=== PATIENT | female | born 1940 | race Caucasian/White ===

== ENCOUNTER 2016-10-08 13:12 | Outpatient (RCR) | payer OTHER, MEDICARE | END 2017-01-06 | disposition home or self-care (01) | LOC: ONC 13:12 | PROVIDERS: ATTEND Radiology Radiation Oncology | DX: C50.412 Malignant neoplasm of upper-outer quadrant of left female breast (principal) | CPT/HCPCS: 99214 ==

== ENCOUNTER 2020-10-28 21:45 | Emergency (ER) | payer MEDICARE, OTHER ==
[~2020-10-28] VITALS: Ht 162.6 cm; Wt 62.2 kg
[2020-10-28 21:56] VITALS: BP 129/69
--- NOTE | 2020-10-28 22:31 | ED Upper Extremity ---
General Chief Complaint: Laceration Stated Complaint: FINGER LACERATION Nursing Triage Note: PT AMBULATE TO ROOM FS02 WITH C/O LAC TO LEFT INDEX FINGER. PT STATES SHE WAS TRYING TO OPEN A PACKAGE OF SALAD DRESSING. Nursing Sepsis Screen: No Definite Risk Source: patient Exam Limitations: no limitations History of Present Illness Date Seen by Provider: Oct 28, 2020 Time Seen by Provider: 22:00 Initial Comments Patient is a 80-year-old female who presents with a laceration to the left index finger. Patient was using a paring knife at the time of injury. Patient has a full-thickness 2 cm flap laceration Wound is clean. Bleeding is controlled. Tetanus is out of date. No other acute symptoms or complaints. Onset: just prior to arrival Pain/Injury Location: left 2nd finger Method of Injury: incised Allergies and Home Medications Patient Home Medication List Home Medication List Reviewed: Yes Review of Systems Constitutional: see HPI Respiratory: see HPI Cardiovascular: see HPI Gastrointestinal: see HPI Genitourinary: see HPI Musculoskeletal: other (2 cm full-thickness flap laceration through the left second finger pad. No joint involvement. Wound is clean, bleeding is controlled.) Skin: see HPI Past Uchmqdc-Efqaxr-Eclhnm Hx Patient Social History Alcohol Use: Denies Use Smoking Status: Current Everyday Smoker Type Used: Cigarettes 2nd Hand Smoke Exposure: Yes Recent Infectious Disease Expo: No Recent Hopitalizations: No Seasonal Allergies Seasonal Allergies: No Past Medical History Surgeries: Yes (LUMPECTOMY LEFT BREAST, MELANOMO FROM RIGHT LEG, ) Respiratory: No Cardiac: Yes Hypertension Neurological: No Genitourinary: Yes Kidney Stones Gastrointestinal: No Musculoskeletal: Yes (LEFT ANKLE FX, ) Fractures Endocrine: Yes Hypothyroidsim HEENT: Yes (CATARACT SURGERY BILAT, ) Cataract Hearing Impairment: Denies Cancer: No Psychosocial: No (XANAX TO HELP SLEEP) Integumentary: No Blood Disorders: No Physical Exam Vital Signs Vital Signs - First Documented 10/28/20 21:56 Temp 36.4 Pulse 69 Resp 17 B/P (MAP) 129/69 (89) O2 Delivery Room Air Capillary Refill : Less Than 3 Seconds Height, Weight, BMI Height: '" Weight: lbs. oz. kg; 23.00 BMI Method: General Appearance: no apparent distress Procedures/Interventions Wound Location: Upper Extremities Other Wound Location Left index finger Wound Length (cm): 2 Wound Explored: clean Betadine Prep?: No Other Closure Supply: Wound Adhesive Progress Wound irrigated, cleansed and closed with wound adhesive. A finger tourniquet was used to stop bleeding. Progress/Results/Core Measures Results/Orders Vital Signs/I&O 10/28/20 21:56 Temp 36.4 Pulse 69 Resp 17 B/P (MAP) 129/69 (89) O2 Delivery Room Air Blood Pressure Mean: 89 Departure Communication (Admissions) Wound cleansed and closed with wound adhesive. Impression Primary Impression: Laceration of left index finger Disposition: HOME, SELF-CARE Condition: Stable Departure-Patient Inst. Decision time for Depature: 22:34 Referrals: TONO MACK APRN (PCP/Family) Primary Care Physician Patient Instructions: Laceration Repair With Glue (DC) Add. Discharge Instructions: Please keep wound clean and dry. Return to the ED if signs of infection. All discharge instructions reviewed with patient and/or family. Voiced understanding. MICHELLE RAYO DO Oct 28, 2020 22:31
[2020-10-28] MEDS ORDERED: TETANUS & DIPHTHERIA TOX,ADULT 0.5 ML (TENIVAC) IM ONE (22:45)
== END 2020-10-28 22:50 | disposition home or self-care (01) ==
LOC: EDUNIT# 21:45 → ER FS 21:50
DX: S61.211A Laceration without foreign body of left index finger without damage to nail, initial encounter (principal); F17.210 Nicotine dependence, cigarettes, uncomplicated; Z23 Encounter for immunization; W26.0XXA Contact with knife, initial encounter
CPT/HCPCS: 90714

== ENCOUNTER → 2021-01-01 | Outpatient (CLI) | payer MEDICARE ==
--- NOTE | 2021-01-01 15:02 | Diagnostic Imaging Report ---
INDICATION: Postmenopausal. COMPARISON: None FINDINGS: The bone mineral density of the hips and spine and femoral necks was measured. There are no prior studies available for comparison. The total T score for the spine is 1.4. The total T score for the left hip is -0.3 and for the right hip -0.5. The T score for the left femoral neck is -0.3 and for the right femoral neck -0.8. All of these values are within normal limits. AP Spine L1-L4: [BMD (g/cm2): 1.366] [T-Score: 1.4] [Z-Score: 3.2] [BMD Previous: na] [BMD % Change: na] LT Hip Neck: [BMD (g/cm2): 1.0] [T-Score: -0.3] [Z-Score: 1.9] LT Hip Total: [BMD (g/cm2):0.968] [T-Score:-0.3] [Z-Score: 1.7] [BMD Previous: na] [BMD % Change: na] RT Hip Neck: [BMD (g/cm2):0.934] [T-Score:-0.8] [Z-Score:1.4] RT Hip Total: [BMD (g/cm2):0.940] [T-score:-0.5] [Z-Score:1.4] [BMD Previous:na] [BMD % Change:na] *Indicates significant change from prior examination based on 95% confidence level. World Health Organization criteria for BMD interpretation classify patients as Normal (T-score at or above -1.0), Osteopenic (T-score between -1.0 and -2.5) or Osteoporotic (T-score at or below -2.5). LIMITATIONS AND MODIFICATION: None. FRACTURE RISK (FRAX SCORE): The ten year probability of (%): Major Osteoporotic Fracture: [na] Hip Fracture: [na] IMPRESSION: 1. The bone mineral density of the spine and hips and the femoral necks is within normal limits. 2. See below National Osteoporosis Foundation guidelines on when to potentially initiate pharmacologic therapy. Based on the National Osteoporosis Foundation Guidelines, pharmacologic treatment should be initiated in any of the following, unless clinical conditions suggest otherwise: * Any patient with prior fragility fracture of the hip or vertebrae. A spine fracture indicates 5X risk for subsequent spine fracture and 2X risk for subsequent hip fracture. * Osteoporosis (T-score <-2.5). * Postmenopausal women and men age 50 and older with low bone mass/osteopenia (T-score between -1.0 and -2.5) by DXA and 10-year major osteoporotic fracture greater than 20% or a 10-year probability of hip fracture greater than 3%. These fracture risks are supplied above in the FRAX score, if applicable. * Clinician judgement and/or patient preferences may indicate treatment for people with 10-year fracture probabilities above or below these levels. Dictated by: Dictated on workstation # [id number]
== END ==
LOC: EDBD 11-13 11:00 → RAD 12:30
PROVIDERS: ATTEND Nurse Practitioner
DX: Z78.0 Asymptomatic menopausal state (principal)
CPT/HCPCS: 77080

== ENCOUNTER 2021-02-21 17:39 | Emergency (ER) | payer MEDICARE ==
[~2021-02-21] VITALS: Ht 160 cm; Wt 65.0 kg
--- NOTE | 2021-02-21 18:11 | ED Abdominal Pain ---
General Chief Complaint: - Urinary Stated Complaint: RIGHT LOWER SIDE PAIN Nursing Triage Note: BACK PAIN THAT RADIATES INTO HER GROIN SINCE THIS AM. NAUSEA WELL. Sepsis Screen: No Definite Risk History of Present Illness Date Seen by Provider: February 21, 2021 Time Seen by Provider: 18:00 Initial Comments 81-year-old female presents with right back and flank pain, beginning after having an ultrasound done for routine RE-evaluation for a known abdominal an eurysm. She states that it was "unchanged". Patient says she has been constipated and did take a suppository afterwards and only had a small bowel movement. Otherwise she is taking nothing for pain. She denies any pain with urination, frequent urination or blood in her urine. Although she does have a history of kidney stones, She states this does not feel like a kidney stone. Denies any upper abdominal pain or vomiting, loss of appetite, fever or chills. Denies chest pain, palpitations, cough or shortness of air. Pain is not pulsating, but waxes and wanes. Allergies and Home Medications Allergies Coded Allergies: No Known Drug Allergies (Unverified , 10/28/20) Home Medications Ondansetron 4 Mg Tab.rapdis, 4 MG PO TID Prescribed by: DAMARI QUINONEZ on 02/21/211911 Patient Home Medication List Home Medication List Reviewed: Yes Review of Systems Review of Systems Constitutional: No chills, No fever, No malaise, No weakness EENTM: No Symptoms Reported Respiratory: Denies Cough, Denies Shortness of Air, Denies Wheezing Cardiovascular: Denies Chest Pain, Denies Edema, Denies Palpitations Gastrointestinal: See HPI, Abdominal Pain, Constipated; Denies Diarrhea; Nausea; Denies Vomiting Genitourinary: See HPI; Denies Frequency; Flank Pain; Denies Hematuria Musculoskeletal: back pain Skin: No change in color, No rash Past Pjhzead-Rueuhw-Fnurte Hx Past Med/Social Hx: Reviewed Nursing Past Med/Soc Hx Patient Social History Alcohol Use: Denies Use Smoking Status: Former Smoker Type Used: Cigarettes 2nd Hand Smoke Exposure: Yes Recent Infectious Disease Expo: No Recent Hopitalizations: No Seasonal Allergies Seasonal Allergies: No Past Medical History Surgeries: Yes (LUMPECTOMY LEFT BREAST, MELANOMO FROM RIGHT LEG, ) Respiratory: No Cardiac: Yes Hypertension Neurological: No Genitourinary: Yes Kidney Stones Gastrointestinal: No Musculoskeletal: Yes (LEFT ANKLE FX, ) Fractures Endocrine: Yes Hypothyroidsim HEENT: Yes (CATARACT SURGERY BILAT, ) Cataract Hearing Impairment: Denies Cancer: No Psychosocial: No (XANAX TO HELP SLEEP) Integumentary: No Blood Disorders: No Physical Exam Vital Signs Vital Signs - First Documented 02/21/21 17:45 Temp 35.7 Pulse 66 Resp 18 B/P (MAP) 203/100 (134) Pulse Ox 97 O2 Delivery Room Air Capillary Refill : Less Than 3 Seconds Height/Weight/BMI Height: '" Weight: lbs. oz. kg; 25.00 BMI Method: General Appearance: WD/WN, no apparent distress Respiratory: chest non-tender, lungs clear, normal breath sounds, no respiratory distress, no accessory muscle use Cardiovascular: regular rate, rhythm, no edema, no JVD Gastrointestinal: soft, no organomegaly; No guarding, No rebound; tenderness (generalized, R flank without peritoneal sx); No mass, No hepatomegaly Back: CVA tenderness (R), muscle spasm (R mid lumbar paraspinal ms) Neurologic/Psychiatric: alert, normal mood/affect, oriented x 3 Skin: normal color, warm/dry Progress/Results/Core Measures Results/Orders Lab Results Laboratory Tests Test 02/21/21 17:50 Range/Units Urine Color PALE YELLOW Urine Clarity CLEAR Urine pH 7.5 5-9 Urine Specific [place] 1.020 1.016-1.022 Urine Protein NEGATIVE NEGATIVE Urine Glucose (UA) NEGATIVE NEGATIVE Urine Ketones NEGATIVE NEGATIVE Urine Nitrite NEGATIVE NEGATIVE Urine Bilirubin NEGATIVE NEGATIVE Urine Urobilinogen 0.2 < = 1.0 MG/DL Urine Leukocyte Esterase TRACE H NEGATIVE Urine RBC (Auto) 1+ H NEGATIVE Urine RBC 0-2 /HPF Urine WBC 5-10 H /HPF Urine Squamous Epithelial Cells RARE /HPF Urine Crystals NONE /LPF Urine Bacteria NEGATIVE /HPF Urine Casts NONE /LPF Urine Mucus NEGATIVE /LPF Urine Culture Indicated YES My Orders Orders - DAMARI QUINONEZ DO Urinalysis (02/21/21 18:00) Ed Iv/Invasive Line Start (02/21/21 18:06) Fentanyl Inj (Sublimaze Injection) (02/21/21 18:15) Ns Iv 500 Ml (Sodium Chloride 0.9%) (02/21/21 18:15) Ondansetron Injection (Zofran Injectio (02/21/21 18:15) Urine Culture (02/21/21 17:50) Acute Abd Series (02/21/21 18:19) Ibuprofen Tablet (Motrin Tablet) (02/21/21 19:00) Magnesium Citrate Oral Soln (Citrate Of (02/21/21 19:00) Medications Given in ED Current Medications Medications Dose Ordered Sig/Jakub Route Start Time Stop Time Status Last Admin Dose Admin Fentanyl Citrate 50 mcg ONCE ONCE IVP 02/21/21 18:15 02/21/21 18:16 DC 02/21/21 18:14 50 MCG Ibuprofen 800 mg ONCE ONCE PO 02/21/21 19:00 02/21/21 19:01 DC 02/21/21 19:05 800 MG Magnesium Citrate 150 ml ONCE ONCE PO 02/21/21 19:00 02/21/21 19:01 DC 02/21/21 19:05 150 ML Ondansetron HCl 4 mg ONCE ONCE IVP 02/21/21 18:15 02/21/21 18:16 DC 02/21/21 18:13 4 MG Vital Signs/I&O 02/21/21 17:45 Temp 35.7 Pulse 66 Resp 18 B/P (MAP) 203/100 (134) Pulse Ox 97 O2 Delivery Room Air Blood Pressure Mean: 134 Progress Progress Note : Progress Note suspect pain is from gas and stool on R side. Patient admits to constipation and having small BM after taking suppository this afternoon. Hx of occasional constipation and has Rx suppositories at home. Today took an older Rx that was , but states she has "newer ones" in her fridge. See instructions, given 1/2 bottle mag citrate prior to departure, advised clear liquids until improvement and prompt follow up if sx progress, unrelieved in 24 hours. Patient and her agree and express understanding. BP was elevated, advised to take PM BP meds when she gets home. Departure Impression Primary Impression: Abdominal pain Qualified Codes: R10.11 - Right upper quadrant pain Disposition: 01 HOME, SELF-CARE Condition: Stable Departure-Patient Inst. Decision time for Depature: 18:53 Referrals: NO,LOCAL PHYSICIAN (PCP) Primary Care Physician TONO MACK APRN (Family) Primary Care Physician Patient Instructions: Abdominal Pain, Adult ED Add. Discharge Instructions: 1. Maintain a clear liquid diet until your pain is resolved. 2. Take 2 teaspoons of Milk of Magnesia every 2 hours for up to 2 days until loose stool 3. Take motrin 800mg for pain and Zofran 4mg for nausea See your Primary Care doctor in 1 day if not improving, ER sooner if worse All discharge instructions reviewed with patient and/or family. Voiced understanding. Scripts Ondansetron (Ondansetron Odt) 4 Mg Tab.rapdis 4 MG PO TID for Nausea, #10 TAB Prov: DAMARI QUINONEZ DO 02/21/21 DAMARI QUINONEZ DO February 21, 2021 18:11
[2021-02-21] MEDS: ONDANSETRON 4 MG/2 ML (SDV) Z0FRAN IVP ONE (18:13)
[2021-02-21] MEDS: fentaNYL INJ 100 MCG/2 ML AMP IVP ONE (18:14)
[2021-02-21] MEDS: NS IV 500 ML 500 ML IV SCH (18:14)
[2021-02-21 18:15] LABS: BACTERIA,URINE NEGATIVE /HPF; BILIRUBIN,URINE NEGATIVE (NEGATIVE); CLARITY,URINE CLEAR; COLOR,URINE PALE YELLOW; GLUCOSE, URINE (UA) NEGATIVE (NEGATIVE); KETONES,URINE NEGATIVE (NEGATIVE); LEUKOCYTE ESTERASE ,URINE TRACE (NEGATIVE); NITRITE,URINE NEGATIVE (NEGATIVE); PH,URINE 7.5 (5-9); PROTEIN,URINE NEGATIVE (NEGATIVE); RBC,URINE 0-2 /HPF; SQUAMOUS EPITHELIAL CELL,UR RARE /HPF
--- NOTE | 2021-02-21 18:39 | Diagnostic Imaging Report ---
EXAMINATION: Abdominal series and chest radiograph HISTORY: Abdominal pain, shortness of breath. COMPARISON: None available. FINDINGS: The lungs are clear. No edema. No pneumonia. No pleural effusion. No pneumothorax. Heart is normal in size. Bowel gas pattern is normal. No free air is seen. IMPRESSION: 1. Clear lungs. 2. Normal bowel gas pattern. Dictated by: Dictated on workstation # [id number]
[2021-02-21] MEDS: IBUPROFEN 800 MG (MOTRIN) TAB PO ONE (19:05)
[2021-02-21] MEDS: MAGNESIUM CITRATE 300 ML BTL PO ONE (19:05)
[2021-02-21] MEDS ORDERED: ONDA4TAB11 PO (19:12)
[2021-02-21 19:17] VITALS: BP 205/97
== END 2021-02-21 19:20 | disposition home or self-care (01) ==
LOC: EDUNIT# 17:39 → ER FS 17:44
DX: R10.84 Generalized abdominal pain (principal); I10 Essential (primary) hypertension; K59.00 Constipation, unspecified; Z87.442 Personal history of urinary calculi; Z87.891 Personal history of nicotine dependence; Z77.22 Contact with and (suspected) exposure to environmental tobacco smoke (acute) (chronic)
CPT/HCPCS: 74022; 81000; 87088

== ENCOUNTER 2021-02-23 15:41 | Emergency (ER) | payer MEDICARE ==
[~2021-02-23 15:41] MED LIST: ONDA4TAB11 PO
[2021-02-23 16:12] LABS: BACTERIA,URINE MODERATE /HPF; BILIRUBIN,URINE NEGATIVE (NEGATIVE); CLARITY,URINE CLOUDY; COLOR,URINE YELLOW; GLUCOSE, URINE (UA) NEGATIVE (NEGATIVE); KETONES,URINE 2+ (NEGATIVE); LEUKOCYTE ESTERASE ,URINE 3+ (NEGATIVE); NITRITE,URINE NEGATIVE (NEGATIVE); PROTEIN,URINE NEGATIVE (NEGATIVE)
[2021-02-23 16:14] LABS: BASOPHILS % (AUTO) 0 % (0-10); EOSINOPHILS % (AUTO) 0 % (0-10); HEMATOCRIT 40 % (35-52); HEMOGLOBIN 13.6 G/DL (11.5-16.0); LYMPHOCYTES # (AUTO) 1.3 X 10^3 (1.0-4.0); LYMPHOCYTES % (AUTO) 7 % (12-44); MEAN CORPUSCULAR HEMOGLOBIN 31 PG (25-34); MEAN CORPUSCULAR HGB CONC 34 G/DL (32-36); MEAN CORPUSCULAR VOLUME 91 FL (80-99); MEAN PLATELET VOLUME 11.3 FL (7.4-10.4); MONOCYTES # (AUTO) 1.2 X 10^3 (0.0-1.0); MONOCYTES % (AUTO) 7 % (0-12); NEUTROPHILS # (AUTO) 14.4 X 10^3 (1.8-7.8); NEUTROPHILS % (AUTO) 85 % (42-75); PLATELET COUNT 286 10^3/uL (130-400)
[2021-02-23 16:30] LABS: ALBUMIN 3.9 GM/DL (3.2-4.5); BILIRUBIN,TOTAL 0.6 MG/DL (0.1-1.0); CALCIUM 8.5 MG/DL (8.5-10.1); CREATININE SERUM 1.26 MG/DL (0.60-1.30); LYMPHOCYTES % (MANUAL) 5 %; MONOCYTES % (MANUAL) 1 %; NEUTROPHILS % (MANUAL) 94 %; POTASSIUM 3.8 MMOL/L (3.6-5.0); TOXIC GRANULATION/VACUOLAZATIO 1+
[2021-02-23] MEDS ORDERED: IOHEXOL 350 MG/ML 100 ML (OMNIPAQUE 350) VIAL IV ONE (16:45)
[2021-02-23] MEDS ORDERED: HOLD METFORMIN - RECEIVED CONTRAST 20 ML VIAL IV SCH (16:45)
[2021-02-23] MEDS ORDERED: NS 100 ML (IVPB) BAG IV ONE (16:45)
[2021-02-23] MEDS ORDERED: CATHETER FLUSH 10 ML SYR IV PRN (16:45)
--- NOTE | 2021-02-23 16:57 | ED GI ---
General Chief Complaint: Abdominal/GI Problems Stated Complaint: RIGHT SIDE ABDOMINAL PAIN | CONSTIPATION Nursing Triage Note: Patient presents to the ED with c/o of right sided abdominal pain. She reports she was seen on in the ED and given zofran and told to use milk of magnesia. She states the pain improved yesterday when she was having bowel movements but today the pain has increased in severity, is tender to touch, and increased with movement. Sepsis Screen: No Definite Risk History of Present Illness Date Seen by Provider: February 23, 2021 Initial Comments 81-year-old female returns to the ER after being seen by myself 2 days earlier. Patient presumed to have some mild constipation and was given instructions to have a bowel movement as this seems to be a logical explanation of her pain. See note for further details and history of present illness. Patient denies any nausea, vomiting or diarrhea. She did have a bowel movement after taking milk of magnesia and did feel better for a short period, however now pain has returned. Pain is localized to the right lower abdomen, no longer in her back. She denies any pain with urination, increased frequency or blood in her urine. Allergies and Home Medications Allergies Coded Allergies: No Known Drug Allergies (Unverified , 10/28/20) Home Medications Ondansetron 4 Mg Tab.rapdis, 4 MG PO TID Prescribed by: DAMARI QUINONEZ on 02/21/211911 Patient Home Medication List Home Medication List Reviewed: Yes Review of Systems Review of Systems Constitutional: No chills, No fever, No malaise, No weakness EENTM: No Symptoms Reported Respiratory: No Symptoms Reported; Denies Cough, Denies Shortness of Air Cardiovascular: Denies Chest Pain, Denies Edema, Denies Palpitations, Denies Syncope Gastrointestinal: See HPI, Abdominal Pain; Denies Constipated (but slow and infreq BM's), Denies Diarrhea, Denies Nausea, Denies Poor Appetite, Denies Vomiting Genitourinary: No Symptoms Reported; Denies Burning, Denies Frequency, Denies Flank Pain, Denies Hematuria Musculoskeletal: No back pain, No joint pain, No muscle pain Skin: No change in color, No lesions, No rash Past Aulinbx-Gixzzo-Ohjujm Hx Past Med/Social Hx: Reviewed Nursing Past Med/Soc Hx Patient Social History Alcohol Use: Denies Use Smoking Status: Current Everyday Smoker Type Used: Cigarettes 2nd Hand Smoke Exposure: Yes Recent Infectious Disease Expo: No Recent Hopitalizations: No Seasonal Allergies Seasonal Allergies: No Past Medical History Surgeries: Yes (LUMPECTOMY LEFT BREAST, MELANOMO FROM RIGHT LEG, ) Respiratory: No Cardiac: Yes Hypertension Neurological: No Genitourinary: Yes Kidney Stones Gastrointestinal: No Musculoskeletal: Yes (LEFT ANKLE FX, ) Fractures Endocrine: Yes Hypothyroidsim HEENT: Yes (CATARACT SURGERY BILAT, ) Cataract Hearing Impairment: Denies Cancer: No Psychosocial: No (XANAX TO HELP SLEEP) Integumentary: No Blood Disorders: No Physical Exam Vital Signs Vital Signs - First Documented 02/23/21 15:53 Temp 36.6 Pulse 82 Resp 17 B/P (MAP) 135/58 (83) Pulse Ox 82 O2 Delivery Room Air Capillary Refill : Less Than 3 Seconds Height/Weight/BMI Height: '" Weight: lbs. oz. kg; 25.00 BMI Method: General Appearance: WD/WN, no apparent distress Respiratory: chest non-tender, lungs clear, normal breath sounds, no respiratory distress, no accessory muscle use Cardiovascular: regular rate, rhythm, no edema, no JVD Gastrointestinal: normal bowel sounds, soft; No guarding, No rebound; tenderness (RLQ); No mass, No hepatomegaly, No spleenomegaly Back: normal inspection, no CVA tenderness; No muscle spasm Neurologic/Psychiatric: alert, normal mood/affect, oriented x 3 Skin: normal color, warm/dry Progress/Results/Core Measures Results/Orders Lab Results Laboratory Tests Test 02/23/21 15:58 02/23/21 16:05 Range/Units Urine Color YELLOW Urine Clarity CLOUDY Urine pH 8.0 5-9 Urine Specific [place] 1.015 L 1.016-1.022 Urine Protein NEGATIVE NEGATIVE Urine Glucose (UA) NEGATIVE NEGATIVE Urine Ketones 2+ H NEGATIVE Urine Nitrite NEGATIVE NEGATIVE Urine Bilirubin NEGATIVE NEGATIVE Urine Urobilinogen 0.2 < = 1.0 MG/DL Urine Leukocyte Esterase 3+ H NEGATIVE Urine RBC (Auto) 1+ H NEGATIVE Urine RBC 5-10 H /HPF Urine WBC 10-25 H /HPF Urine Squamous Epithelial Cells 5-10 /HPF Urine Crystals NONE /LPF Urine Bacteria MODERATE H /HPF Urine Casts NONE /LPF Urine Mucus NEGATIVE /LPF Urine Culture Indicated YES White Blood Count 17.0 H 4.3-11.0 10^3/uL Red Blood Count 4.40 4.35-5.85 10^6/uL Hemoglobin 13.6 11.5-16.0 G/DL Hematocrit 40 35-52 % Mean Corpuscular Volume 91 80-99 FL Mean Corpuscular Hemoglobin 31 25-34 PG Mean Corpuscular Hemoglobin Concent 34 32-36 G/DL Red Cell Distribution Width 13.9 10.0-14.5 % Platelet Count 286 130-400 10^3/uL Mean Platelet Volume 11.3 H 7.4-10.4 FL Immature Granulocyte % (Auto) 0 % Neutrophils (%) (Auto) 85 H 42-75 % Lymphocytes (%) (Auto) 7 L 12-44 % Monocytes (%) (Auto) 7 0-12 % Eosinophils (%) (Auto) 0 0-10 % Basophils (%) (Auto) 0 0-10 % Neutrophils # (Auto) 14.4 H 1.8-7.8 X 10^3 Lymphocytes # (Auto) 1.3 1.0-4.0 X 10^3 Monocytes # (Auto) 1.2 H 0.0-1.0 X 10^3 Eosinophils # (Auto) 0.0 0.0-0.3 10^3/uL Basophils # (Auto) 0.0 0.0-0.1 10^3/uL Immature Granulocyte # (Auto) 0.1 0.0-0.1 10^3/uL Neutrophils % (Manual) 94 % Lymphocytes % (Manual) 5 % Monocytes % (Manual) 1 % Toxic Granulation 1+ Sodium Level 130 L 135-145 MMOL/L Potassium Level 3.8 3.6-5.0 MMOL/L Chloride Level 90 L 98-107 MMOL/L Carbon Dioxide Level 30 21-32 MMOL/L Anion Gap 10 5-14 MMOL/L Blood Urea Nitrogen 14 7-18 MG/DL Creatinine 1.26 0.60-1.30 MG/DL Estimat Glomerular Filtration Rate 41 BUN/Creatinine Ratio 11 Glucose Level 161 H 70-105 MG/DL Calcium Level 8.5 8.5-10.1 MG/DL Corrected Calcium 8.6 8.5-10.1 MG/DL Total Bilirubin 0.6 0.1-1.0 MG/DL Aspartate Amino Transf (AST/SGOT) 21 5-34 U/L Alanine Aminotransferase (ALT/SGPT) 18 0-55 U/L Alkaline Phosphatase 134 40-136 U/L Total Protein 7.0 6.4-8.2 GM/DL Albumin 3.9 3.2-4.5 GM/DL My Orders Orders - DAMARI QUINONEZ DO Cbc With Automated Diff (02/23/21 16:08) Comprehensive Metabolic Panel (02/23/21 16:08) Urinalysis (02/23/21 16:08) Ct Abd/Pelv W (Appendicitis) (02/23/21 16:08) Urine Culture (02/23/21 15:58) Manual Differential (02/23/21 16:05) Iohexol Injection (Omnipaque 350 Mg/Ml 1 (02/23/21 16:45) Received Contrast (Hold Metformin- Contr (02/23/21 16:45) Sodium Chloride Flush (Catheter Flush Sy (02/23/21 16:45) Ns (Ivpb) (Sodium Chloride 0.9% Ivpb Bag (02/23/21 16:45) Ns Iv 1000 Ml (Sodium Chloride 0.9%) (02/23/21 17:00) Ondansetron Injection (Zofran Injectio (02/23/21 17:00) Medications Given in ED Current Medications Medications Dose Ordered Sig/Jakub Route Start Time Stop Time Status Last Admin Dose Admin Iohexol 80 ml ONCE ONCE IV 02/23/21 16:45 02/23/21 16:46 DC 02/23/21 16:42 80 ML Sodium Chloride 10 ml NEEDED PRN IV 02/23/21 16:45 02/23/21 16:43 10 ML Sodium Chloride 100 ml ONCE ONCE IV 02/23/21 16:45 02/23/21 16:46 DC 02/23/21 16:42 80 ML Vital Signs/I&O 02/23/21 15:53 Temp 36.6 Pulse 82 Resp 17 B/P (MAP) 135/58 (83) Pulse Ox 82 O2 Delivery Room Air Blood Pressure Mean: 83 Diagnostic Imaging Diagonstic Imaging: CT Comments IMPRESSION: 1. Severe right hydronephrosis and hydroureter due to an obstructing 7 mm stone at the right UVJ. There is associated delayed nephrogram on the right indicative of impaired renal function due to the severe obstruction. 2. Fluid-filled colon may be due to diarrheal state. No colitis. 3. Infrarenal abdominal aortic aneurysm measures up to 3.7 cm but has no feature of rupture. Dictated on workstation # [id number] Dict: 02/23/21 1655 Trans: 02/23/21 170 PJ [id number] Interpreted by: OSIEL TEJADA MD Electronically signed by: Departure Impression Primary Impression: Abdominal pain Qualified Codes: R10.31 - Right lower quadrant pain Additional Impression: Ureterolithiasis Disposition: HOME, SELF-CARE Condition: Stable Departure-Patient Inst. Decision time for Depature: 17:21 Referrals: NO,LOCAL PHYSICIAN (PCP) Primary Care Physician TONO MACK APRN (Family) Primary Care Physician Patient Instructions: Kidney Stone, Adult ED Add. Discharge Instructions: Follow up with your Urologist of Choice- Dr Clemens in [place]. Call on Thursday morning to schedule an "ER follow up appointment for an obstructing 7mm kidney stone" Return to the nearest ER for any worsening or uncontrolled pain. You may still take Milk of Magnesia occasionally for constipation. Consider taking over the counter(OTC) Miralax daily to try and keep your bowels more regular All discharge instructions reviewed with patient and/or family. Voiced understanding. Scripts Ciprofloxacin HCl (Ciprofloxacin HCl) 500 Mg Tablet 500 MG PO BID, #14 TAB Prov: MARISSASTDAMARI ENCARNACION DO 02/23/21 Ibuprofen (Ibuprofen) 800 Mg Tablet 800 MG PO Q8H PRN for PAIN, #30 TAB 0 Refills Prov: MARISSASTINEDAMARI DO 02/23/21 Hydrocodone/Acetaminophen (Hydrocodone-Acetamin 5-325 mg) 1 Each Tablet 1 EACH PO Q4H PRN for PAIN-SEVERE (8-10), #10 TAB Prov: ROVENSTINEDAMARI DO 02/23/21 Tamsulosin HCl (Flomax) 0.4 Mg Cap 0.4 MG PO DAILY, #7 CAP Prov: DARYLVENSTINEDAMARI DO 02/23/21 ROYORDYSTDAMARI ENCARNACION DO February 23, 2021 16:57
[2021-02-23] MEDS ORDERED: NS IV 1000 ML 1,000 ML IV SCH (17:00)
[2021-02-23] MEDS ORDERED: ONDANSETRON 4 MG/2 ML (SDV) Z0FRAN IVP ONE (17:00)
--- NOTE | 2021-02-23 17:05 | Diagnostic Imaging Report ---
CT Abd/pelv w (appendicitis). TECHNIQUE: Multiple contiguous axial images were obtained through the abdomen and pelvis after administration of intravenous contrast. All CT scans use one or more of the following dose optimizing techniques: automated exposure control, MA and/or KvP adjustment based on patient size and exam type or iterative reconstruction. INDICATION: Right lower quadrant pain. COMPARISON: None available. FINDINGS: Lower chest: Calcified granulomas in the bilateral lower lobes. Peritoneum: No free intraperitoneal air or loculated fluid collection. Liver and biliary system: The liver is normal. The gallbladder is normal. No biliary duct dilation. Spleen and Pancreas: Spleen is normal. The pancreas enhances normally without mass lesion or peripancreatic inflammatory changes. Adrenals: Normal. tract: Severe right hydronephrosis and hydroureter due to a 7 mm obstructing stone at the right UVJ. There is right-sided perinephric stranding and delayed nephrogram on the right from elevated pressures due to obstruction. No solid renal mass on either side. The urinary bladder is decompressed. Uterus and ovaries are unremarkable. GI tract: Stomach is decompressed. No bowel obstruction. No pericolonic inflammatory changes. Fluid-filled colon. Appendix is not seen. Vasculature and Lymph nodes: Infrarenal fusiform abdominal aorta measures up to 3.7 cm. No features of dissection or rupture. Moderate atherosclerotic plaquing is present. Musculoskeletal: No concerning osseous lesion. IMPRESSION: 1. Severe right hydronephrosis and hydroureter due to an obstructing 7 mm stone at the right UVJ. There is associated delayed nephrogram on the right indicative of impaired renal function due to the severe obstruction. 2. Fluid-filled colon may be due to diarrheal state. No colitis. 3. Infrarenal abdominal aortic aneurysm measures up to 3.7 cm but has no feature of rupture. Dictated by: Dictated on workstation # [id number]
[2021-02-23] MEDS ORDERED: TMSL.4C PO (17:23)
[2021-02-23] MEDS ORDERED: IBUP-1780 PO (17:23)
[2021-02-23] MEDS ORDERED: ACHD5005 PO (17:23)
[2021-02-23] MEDS ORDERED: CIPR500T5 PO (17:26)
[2021-02-23] MEDS ORDERED: KETOROLAC 30 MG/ML VIAL IVP ONE (17:30)
[2021-02-23 17:49] VITALS: BP 135/58
== END 2021-02-23 17:50 | disposition home or self-care (01) ==
LOC: EDUNIT# 15:41 → ER FS 15:44
DX: N13.2 Hydronephrosis with renal and ureteral calculous obstruction (principal); I10 Essential (primary) hypertension; F17.210 Nicotine dependence, cigarettes, uncomplicated
CPT/HCPCS: 36415; 74177; 80053; 81000; 85007; 85027; 87088

== ENCOUNTER → 2021-03-21 | Outpatient (CLI) | payer MEDICARE ==
[~2021-03-21] VITALS: Ht 162 cm; Wt 66.0 kg
[~2021-03-21] MED LIST changes: +ACHD5005 PO; +CATHETER FLUSH 10 ML SYR IV PRN; +CIPR500T5 PO; +IBUP-1780 PO; +REGADENOSON 0.4 MG/5 ML SYR (LEXISCAN) IV ONE; +TMSL.4C PO
--- NOTE | 2021-03-22 08:17 | Cardiology Stress Test Report ---
Stress Test Report Date of Procedure/Referring: Date of Procedure: Mar 21, 2021 PCP Bethel Simpson Jr, MD Admitting Physician No,Local Physician Indications: Abdominal aortic aneurysm. Baseline Heart Rate: 58 Baseline Blood Pressure: Blood Pressure Systolic: 149 Blood Pressure Diastolic: 88 Baseline EKG: Baseline EKG: Sinus bradycardia at 58 bpm with nonspecific T wave changes. Summary After explaining the procedure to the patient, she signed a consent and then brought to the stress nuclear laboratory. The patient was walked on the treadmill utilizing a modified Chet protocol. After 1 minute of walking, the patient received 0.4 mg Lexiscan for stress test. ECG, heart rate and blood pressure were monitored continuously. Resting and stress dose of radio tracer were injected, imaging was acquired and reviewed in short axis, horizontal long axis and vertical long axis views. Gated imaging was obtained. The study quality is adequate. STRESS RESULTS: The resting heart rate was 58 bpm and the peak heart was 90 bpm. The resting blood pressure was 149/88 mmHg and the peak blood pressure was 180/92 mmHg. This represents a normal heart rate and blood pressure response to exercise with Lexiscan. The test was stopped due to the protocol. There was no exercise- induced chest discomfort, arrhythmias, or electrocardiogram changes. NUCLEAR RESULTS: 1. There was normal myocardial perfusion in all segments without evidence of infarction or ischemia. There was normal left ventricular chamber size with an end-diastolic volume of 45 mL and an end-systolic volume of 15 mL. There was no evidence of transient ischemic dilatation. The TID ratio was 1.1. There was normal wall motion in all segments with a calculated ejection fraction of 61%. TID: 1.1 EF: 66 IMPRESSION: 1. Normal heart rate and blood pressure response to exercise with regadenoson. 2. There was no stress-induced chest discomfort. 3. There were no stress-induced arrhythmias. 4. There were no stress-induced ECG changes. 5. There was normal myocardial perfusion in all segments without evidence of infarction or ischemia. 6. There was normal wall motion in all segments with a calculated ejection fraction of 66%. BETHEL SIMPSON JR, MD Mar 22, 2021 08:17
[2021-03-22 08:22] VITALS: BP 149/88
== END ==
LOC: CARD 07:30
PROVIDERS: ATTEND Internal Medicine Cardiovascular Disease
DX: I71.4 Abdominal aortic aneurysm, without rupture (principal)
CPT/HCPCS: 78452; 93017; A9502

== ENCOUNTER → 2021-03-29 | Outpatient (CLI) | payer MEDICARE ==
[~2021-03-29] MED LIST changes: +HOLD METFORMIN - RECEIVED CONTRAST 20 ML VIAL IV SCH; +IOHEXOL 350 MG/ML 100 ML (OMNIPAQUE 350) VIAL IV ONE; +NS 100 ML (IVPB) BAG IV ONE; -REGADENOSON 0.4 MG/5 ML SYR (LEXISCAN) IV ONE
[2021-03-29 09:18] LABS: BUN/CREATININE RATIO 18; CREATININE SERUM 0.74 MG/DL (0.60-1.30); GFR ESTIMATED > 60
--- NOTE | 2021-03-29 10:40 | Diagnostic Imaging Report ---
PROCEDURE: CT angiography of the abdomen and chest with and without contrast. TECHNIQUE: After intravenous administration of contrast, thin section axial CT angiography of the abdomen and chest were obtained. 3D MIP reformats were provided. Auto Exposure Controls were utilized during the CT exam to meet ALARA standards for radiation dose reduction. INDICATION: Evaluate for abdominal aortic aneurysm. COMPARISON: CT abdomen and pelvis on 02/23/2021. CTA chest: There is atherosclerotic plaque in the thoracic aorta without evidence of aneurysm. The ascending aorta measures 3.9 cm in max diameter. No periaortic inflammatory changes are seen. The heart size is within normal limits. No pericardial effusion is present. Coronary artery atherosclerotic plaque is also present without aneurysm. There is no mediastinal, hilar, or axillary lymphadenopathy. Increased patchy opacities are seen in the left lung base. Scattered calcified granulomas are noted. No suspicious pulmonary nodules. No pneumothoraces are present. No central endobronchial obstructing lesions are identified. There are no pleural effusions. No acute osseous abnormalities are seen. CTA abdomen: There is aneurysmal dilation of the infrarenal abdominal aorta measuring 3.8 cm in max diameter. This is superimposed on atherosclerotic plaque throughout the abdominal aorta. There has been interval increase in accumulation of soft atheromatous plaque within the aneurysm sac. 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 The celiac trunk, SMA, ANDREI, and renal arteries are visualized and are patent. No periaortic inflammatory changes are seen to suggest impending rupture. The liver, spleen, pancreas, adrenal glands, and kidneys have a normal appearance. There is no pathologically enlarged mesenteric or retroperitoneal adenopathy. The included bowel loops are nondilated. There is no free fluid or free air. No acute fractures are visualized in the abdomen. Stable focal sclerotic lesion is seen in the L5 vertebral body favored to represent a bone island. IMPRESSION: 1. Redemonstration of the infrarenal abdominal aortic aneurysm measuring 3.8 cm in max diameter. There appears to have been interval increase in soft atheromatous plaque formation in the aneurysm sac compared to the prior exam. No evidence of periaortic inflammatory changes to suggest impending rupture. Recommend continued close follow-up as indicated. 2. 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 3. No evidence of aneurysm or dissection in the thoracic aorta. 4. Increased patchy opacities in the left lung base. This may represent an area of atelectasis or infection. Dictated by: Dictated on workstation # [id number]
== END ==
LOC: CARD 09:30
PROVIDERS: ATTEND Internal Medicine Cardiovascular Disease
DX: I71.4 Abdominal aortic aneurysm, without rupture (principal); I72.3 Aneurysm of iliac artery
CPT/HCPCS: 36415; 71275; 74175; 82565; 84520; 93306

== ENCOUNTER 2022-03-29 06:51 | Emergency (ER) | payer MEDICARE ==
[~2022-03-29] VITALS: Ht 162.5 cm; Wt 63.5 kg
[~2022-03-29 06:51] MED LIST changes: -CATHETER FLUSH 10 ML SYR IV PRN; -HOLD METFORMIN - RECEIVED CONTRAST 20 ML VIAL IV SCH; -IOHEXOL 350 MG/ML 100 ML (OMNIPAQUE 350) VIAL IV ONE; -NS 100 ML (IVPB) BAG IV ONE
[2022-03-29 07:26] LABS: BASOPHILS % (AUTO) 0 % (0-10); EOSINOPHILS % (AUTO) 0 % (0-10); HEMATOCRIT 38 % (35-52); HEMOGLOBIN 13.2 g/dL (11.5-16.0); LYMPHOCYTES # (AUTO) 1.1 10^3/uL (1.0-4.0); LYMPHOCYTES % (AUTO) 9 % (12-44); MEAN CORPUSCULAR HEMOGLOBIN 31 pg (25-34); MEAN CORPUSCULAR HGB CONC 34 g/dL (32-36); MEAN CORPUSCULAR VOLUME 89 fL (80-99); MEAN PLATELET VOLUME 10.6 fL (9.0-12.2); MONOCYTES # (AUTO) 0.6 10^3/uL (0.0-1.0); MONOCYTES % (AUTO) 5 % (0-12); NEUTROPHILS # (AUTO) 9.7 10^3/uL (1.8-7.8); NEUTROPHILS % (AUTO) 85 % (42-75); PLATELET COUNT 245 10^3/uL (130-400); WHITE BLOOD COUNT 11.5 10^3/uL (4.3-11.0)
[2022-03-29] MEDS ORDERED: NS IV ONE (07:30)
[2022-03-29] MEDS ORDERED: ACETAMINOPHEN 500 MG TAB (TYLENOL) PO PRN (07:30)
[2022-03-29 07:40] LABS: INR 1.1 (0.8-1.4); PROTHROMBIN TIME PATIENT 14.9 SEC (12.2-14.7)
[2022-03-29 07:42] LABS: ALBUMIN 3.8 GM/DL (3.2-4.5); BILIRUBIN,TOTAL 0.6 MG/DL (0.1-1.0); CALCIUM 8.9 MG/DL (8.5-10.1); CREATININE SERUM 0.86 MG/DL (0.60-1.30); POTASSIUM 3.8 MMOL/L (3.6-5.0); TOTAL PROTEIN 7.1 GM/DL (6.4-8.2)
--- NOTE | 2022-03-29 07:51 | Diagnostic Imaging Report ---
CLINICAL INDICATION: Patient with fever and generalized weakness and fatigue. EXAM: Portable chest x-ray, upright view. COMPARISON: None. FINDINGS: Lungs/pleura: There is a small amorphous airspace opacity involving the periphery of the right lower lung field, concerning for lung infiltrate. The remainder of the lungs is clear. There is no pneumothorax. There is no pleural effusion. Mediastinum: Unremarkable. Pulmonary vasculature: Unremarkable. Heart: Unremarkable. Bones/extrathoracic soft tissue: Unremarkable. IMPRESSION: There is a small infiltrate involving the periphery of the right lower lung field which may represent pneumonia. Dictated by: Dictated on workstation # [id number]
[2022-03-29] MEDS ORDERED: cefTRIAXone 1 GM PRE-MIX 50 ML IV STA (08:35)
--- NOTE | 2022-03-29 08:37 | ED General ---
General Chief Complaint: General Problems/Pain Stated Complaint: WEAKNESS Nursing Triage Note: Patient reports she has had weakness, fatigue, and watery diarrhea for 3 days. Source of Information: Patient, Family Exam Limitations: No Limitations History of Present Illness Date Seen by Provider: Mar 29, 2022 Time Seen by Provider: 07:05 Initial Comments 82-year-old female patient with history of hypertension and hypothyroidism presented POV with complaining of weakness and sleeping all the time and diarrhea. Patient complaining of 2 episodes of brown-colored loose stool per day for the last 3 days, generalized weakness and sleeping all the time. Patient denies abdominal pain, nausea and vomiting, fever and chills, chest pain, shortness of breath, cough, sick contacts, recent use of antibiotic. Patient had temperature of 100.4 temporal at arrival to ER. Allergies and Home Medications Allergies Coded Allergies: No Known Drug Allergies (Unverified , 10/28/20) Patient Home Medication List Home Medication List Reviewed: Yes Ciprofloxacin HCl (Ciprofloxacin HCl) 500 Mg Tablet, 500 MG PO BID Prescribed by: DAMARI QUINONEZ on 02/23/211725 Hydrocodone/Acetaminophen (Hydrocodone-Acetamin 5-325 mg) 1 Each Tablet, 1 EACH PO Q4H PRN for PAIN-SEVERE (8-10) Prescribed by: DAMARI QUINONEZ on 02/23/21 172 Ibuprofen (Ibuprofen) 800 Mg Tablet, 800 MG PO Q8H PRN for PAIN Prescribed by: DAMARI QUINONEZ on 02/23/211722 Ondansetron (Ondansetron Odt) 4 Mg Tab.rapdis, 4 MG PO TID Prescribed by: DAMARI QUINONEZ on 02/21/211911 Tamsulosin HCl (Flomax) 0.4 Mg Cap, 0.4 MG PO DAILY Prescribed by: DAMARI QUINONEZ on 02/23/211722 Review of Systems Review of Systems Constitutional: No chills, No fever; weakness EENTM: no symptoms reported Respiratory: no symptoms reported Cardiovascular: no symptoms reported Gastrointestinal: see HPI; No abdominal pain; diarrhea Genitourinary: no symptoms reported Musculoskeletal: no symptoms reported Skin: no symptoms reported Psychiatric/Neurological: No Symptoms Reported All Other Systems Reviewed Negative Unless Noted: Yes Past Rssxibi-Glgwmw-Hwhfmd Hx Patient Social History Tobacco Use?: Yes Seasonal Allergies Seasonal Allergies: No Past Medical History Surgeries: Yes (LUMPECTOMY LEFT BREAST, MELANOMO FROM RIGHT LEG, ) Respiratory: No Cardiac: Yes Hypertension Neurological: No Genitourinary: Yes Kidney Stones Gastrointestinal: No Musculoskeletal: Yes (LEFT ANKLE FX, ) Fractures Endocrine: Yes Hypothyroidsim HEENT: Yes (CATARACT SURGERY BILAT, ) Cataract Hearing Impairment: Denies Cancer: No Psychosocial: No (XANAX TO HELP SLEEP) Integumentary: No Blood Disorders: No Physical Exam Vital Signs Vital Signs - First Documented 03/29/22 07:14 Temp 38.0 Pulse 94 Resp 20 B/P (MAP) 131/78 (95) Pulse Ox 93 O2 Delivery Room Air Capillary Refill : Less Than 3 Seconds Height, Weight, BMI Height: '" Weight: lbs. oz. kg; 24.00 BMI Method: General Appearance: Mild Distress Eyes: Bilateral Eye Normal Inspection, Bilateral Eye PERRL, Bilateral Eye EOMI HEENT: PERRL/EOMI; No Pale Conjunctivae (L), No Pale Conjunctivae (R); Other (dry oral mucosa ) Neck: Full Range of Motion, Normal Inspection Respiratory: Chest Non Tender, No Accessory Muscle Use, No Respiratory Distress, Rales (Right base); No Respiratory Distress, No Wheezing Cardiovascular: Regular Rate, Rhythm Gastrointestinal: Normal Bowel Sounds, Non Tender, Soft Rectal: Other (Rectal exam in presence of pile driving technician showed small amount of b rown-colored stool in the rectum with negative guaiac test.) Back: Normal Inspection, No CVA Tenderness Extremity: Normal Capillary Refill, Normal Inspection Neurologic/Psychiatric: Alert, Oriented x3 Skin: Normal Color, Warm/Dry Focused Exam Lactate Level 03/29/22 07:10: Lactic Acid Level 1.21 Lactic Acid Level Laboratory Tests Test 03/29/22 07:10 Lactic Acid Level 1.21 MMOL/L (0.50-2.00) Progress/Results/Core Measures Suspected Sepsis Recent Fever Within 48 Hours: Yes Infection Criteria Present: Suspected New Infection New/Unexplained Altered Menta: No SIRS Temperature: Pulse: 94 Respiratory Rate: 20 Laboratory Tests 03/29/22 07:10: White Blood Count 11.5H Blood Pressure 131 /78 Mean: 95 03/29/22 07:10: Lactic Acid Level 1.21 Laboratory Tests 03/29/22 07:10: Creatinine 0.86, INR Comment 1.1, Platelet Count 245, Total Bilirubin 0.6 Results/Orders Lab Results Laboratory Tests Test 03/29/22 07:10 03/29/22 07:35 03/29/22 10:39 Range/Units White Blood Count 11.5 H 4.3-11.0 10^3/uL Red Blood Count 4.31 3.80-5.11 10^6/uL Hemoglobin 13.2 11.5-16.0 g/dL Hematocrit 38 35-52 % Mean Corpuscular Volume 89 80-99 fL Mean Corpuscular Hemoglobin 31 25-34 pg Mean Corpuscular Hemoglobin Concent 34 32-36 g/dL Red Cell Distribution Width 14.1 10.0-14.5 % Platelet Count 245 130-400 10^3/uL Mean Platelet Volume 10.6 9.0-12.2 fL Immature Granulocyte % (Auto) 0 % Neutrophils (%) (Auto) 85 H 42-75 % Lymphocytes (%) (Auto) 9 L 12-44 % Monocytes (%) (Auto) 5 0-12 % Eosinophils (%) (Auto) 0 0-10 % Basophils (%) (Auto) 0 0-10 % Neutrophils # (Auto) 9.7 H 1.8-7.8 10^3/uL Lymphocytes # (Auto) 1.1 1.0-4.0 10^3/uL Monocytes # (Auto) 0.6 0.0-1.0 10^3/uL Eosinophils # (Auto) 0.0 0.0-0.3 10^3/uL Basophils # (Auto) 0.0 0.0-0.1 10^3/uL Immature Granulocyte # (Auto) 0.0 0.0-0.1 10^3/uL Prothrombin Time 14.9 H 12.2-14.7 SEC INR Comment 1.1 0.8-1.4 Activated Partial Thromboplast Time 39 H 24-35 SEC Sodium Level 133 L 135-145 MMOL/L Potassium Level 3.8 3.6-5.0 MMOL/L Chloride Level 98 98-107 MMOL/L Carbon Dioxide Level 21 21-32 MMOL/L Anion Gap 14 5-14 MMOL/L Blood Urea Nitrogen 15 7-18 MG/DL Creatinine 0.86 0.60-1.30 MG/DL Estimat Glomerular Filtration Rate 68 BUN/Creatinine Ratio 17 Glucose Level 117 H 70-105 MG/DL Lactic Acid Level 1.21 0.50-2.00 MMOL/L Calcium Level 8.9 8.5-10.1 MG/DL Corrected Calcium 9.1 8.5-10.1 MG/DL Total Bilirubin 0.6 0.1-1.0 MG/DL Aspartate Amino Transf (AST/SGOT) 45 H 5-34 U/L Alanine Aminotransferase (ALT/SGPT) 44 0-55 U/L Alkaline Phosphatase 107 40-136 U/L Total Protein 7.1 6.4-8.2 GM/DL Albumin 3.8 3.2-4.5 GM/DL Influenza Type A (RT-PCR) Not Detected Not Detecte Influenza Type B (RT-PCR) Not Detected Not Detecte SARS-CoV-2 RNA (RT-PCR) Not Detected Not Detecte Urine Color YELLOW Urine Clarity CLEAR Urine pH 6.0 5-9 Urine Specific [place] 1.010 L 1.016-1.022 Urine Protein TRACE H NEGATIVE Urine Glucose (UA) NEGATIVE NEGATIVE Urine Ketones 1+ H NEGATIVE Urine Nitrite NEGATIVE NEGATIVE Urine Bilirubin NEGATIVE NEGATIVE Urine Urobilinogen 0.2 < = 1.0 MG/DL Urine Leukocyte Esterase NEGATIVE NEGATIVE Urine RBC (Auto) TRACE-I H NEGATIVE Urine RBC NONE /HPF Urine WBC 10-25 H /HPF Urine Squamous Epithelial Cells 5-10 /HPF Urine Crystals NONE /LPF Urine Bacteria FEW H /HPF Urine Casts NONE /LPF Urine Mucus SMALL H /LPF Urine Culture Indicated NO My Orders Orders - LEXI ALVAREZ MD Cbc With Automated Diff (03/29/22 07:19) Comprehensive Metabolic Panel (03/29/22 07:19) Blood Culture (03/29/22 07:19) Urinalysis (03/29/22 07:19) Urine Culture (03/29/22 07:19) Protime With Inr (03/29/22 07:19) Partial Thromboplastin Time (03/29/22 07:19) Chest 1 View Ap/Pa Only (03/29/22 07:19) Acetaminophen Tablet (Tylenol Tablet) (03/29/22 07:30) Ed Iv/Invasive Line Start (03/29/22 07:19) Vital Signs Adult Sepsis Patie Q15M (03/29/22 07:19) Lactic Acid Analyzer (03/29/22 07:19) Ns Iv 1000 Ml (Sodium Chloride 0.9%) (03/29/22 07:30) Occult Blood Stool (03/29/22 07:19) Covid 19 Inhouse Test (03/29/22 07:25) Isolation Central Supply Req (03/29/22 07:25) Cbc With Automated Diff (03/29/22 07:29) Procalcitonin (Pct) (03/29/22 07:29) Ceftriaxone 1 Gm Pre-Mix (Rocephin 1 Gm (03/29/22 08:35) Azithromycin Injection (Zithromax Inject (03/29/22 09:00) Influenza A And B By Pcr (03/29/22 07:35) Ns Iv 1000 Ml (Sodium Chloride 0.9%) (03/29/22 10:00) Medications Given in ED Current Medications Medications Dose Ordered Sig/Jakub Route Start Time Stop Time Status Last Admin Dose Admin Acetaminophen 1,000 mg ONCE PRN PO 03/29/22 07:30 03/29/22 07:40 DC 03/29/22 07:40 1,000 MG Azithromycin 500 mg/Sodium Chloride 250 ml @ 250 mls/hr ONCE ONCE IV 03/29/22 09:00 03/29/22 09:59 DC 03/29/22 09:35 250 MLS/HR Sodium Chloride 1,905 ml @ 1,905 mls/hr ONCE ONCE IV 03/29/22 07:30 03/29/22 08:29 DC 03/29/22 07:39 1,905 MLS/HR Vital Signs/I&O 03/29/22 07:14 Temp 38.0 Pulse 94 Resp 20 B/P (MAP) 131/78 (95) Pulse Ox 93 O2 Delivery Room Air Capillary Refill : Less Than 3 Seconds Blood Pressure Mean: 95 Progress Note : Progress Note Evaluation of patient in ER showed 82-year-old female patient with complaining of generalized weakness and not feeling good and few episodes of diarrhea. Patient had temperature of 102 orally at arrival to ER and treated for sepsis protocol with 1950 mL of normal saline and Tylenol. Patient had rales in right lower lobe and chest x-ray showed infiltration and treated with IV Rocephin and Zithromax after obtaining blood cultures. Lactic acid was 1.2 and white count was 11.5. Sodium was 133 without elevation of BUN/creatinine. UA showed UTI. Stool occult blood was negative. Patient felt better after IV fluid treatment and tolerated oral intake. Dr. Chester accepted admission to [facility] at 0900. Patient and her informed about test results, plan of care, need for transfer and agreed with plan of care. Diagnostic Imaging Diagonstic Imaging: Xray (Chest x-ray 1 view) Comments 1 view chest x-ray interpreted by radiologist and reviewed by me and showed: [facility] [place], [place] NAME: MARKOS VAZQUEZ [facility] REC#: [id number] PT STATUS: REG ER : 1940 PHYSICIAN: LEXI ALVAREZ MD ADMIT DATE: 03/29/22/ER FS Signed Date of Exam:03/29/22 CHEST 1 VIEW AP/PA ONLY CLINICAL INDICATION: Patient with fever and generalized weakness and fatigue. EXAM: Portable chest x-ray, upright view. COMPARISON: None. FINDINGS: Lungs/pleura: There is a small amorphous airspace opacity involving the periphery of the right lower lung field, concerning for lung infiltrate. The remainder of the lungs is clear. There is no pneumothorax. There is no pleural effusion. Mediastinum: Unremarkable. Pulmonary vasculature: Unremarkable. Heart: Unremarkable. Bones/extrathoracic soft tissue: Unremarkable. IMPRESSION: There is a small infiltrate involving the periphery of the right lower lung field which may represent pneumonia. Dictated by: Dictated on workstation # [id number] Dict: 03/29/2238 Trans: 03/29/22937 [phone] Interpreted by: UZIEL KIM MD Electronically signed by: UZIEL KIM MD 03/29/22 0938 Departure Communication (Admissions) Time/Spoke to Admitting Phy: 09:00 Dr Henrik Chester accepted patient to [facility] at 0900, she suggested to give IV Zithromax. Impression Primary Impression: Right lower lobe pneumonia Qualified Codes: J18.9 - Pneumonia, unspecified organism Additional Impressions: Generalized weakness Diarrhea Qualified Codes: R19.7 - Diarrhea, unspecified Hyponatremia Disposition: ADMITTED INPATIENT (To [facility]) Condition: Improved Admissions Decision to Admit Reason: Admit from ER (Trauma) Decision to Admit/Date: Mar 29, 2022 Time/Decision to Admit Time: 09:00 Transfer Transfer Reason: Exceeds level of care Method of Transfer: EMS Departure-Patient Inst. Referrals: TORIN DE LEON MD (PCP) Primary Care Physician LEXI ALVAREZ MD Mar 29, 2022 08:37
[2022-03-29] MEDS ORDERED: AZITHROMYCIN INJECTION 500 MG in NS (IVPB) 250 ML IV ONE (09:00)
[2022-03-29] MEDS ORDERED: NS IV 1000 ML 1,000 ML IV SCH (10:00)
[2022-03-29 10:44] LABS: BILIRUBIN,URINE NEGATIVE (NEGATIVE); CLARITY,URINE CLEAR; COLOR,URINE YELLOW; GLUCOSE, URINE (UA) NEGATIVE (NEGATIVE); KETONES,URINE 1+ (NEGATIVE); LEUKOCYTE ESTERASE ,URINE NEGATIVE (NEGATIVE); NITRITE,URINE NEGATIVE (NEGATIVE); PROTEIN,URINE TRACE (NEGATIVE)
[2022-03-29 10:48] LABS: BACTERIA,URINE FEW /HPF
[2022-03-29 11:03] VITALS: BP 102/58
== END 2022-03-29 11:03 | disposition short-term general hospital (02) ==
LOC: EDUNIT# 06:51 → ER FS 06:54
DX: J18.9 Pneumonia, unspecified organism (principal); R19.7 Diarrhea, unspecified; E87.1 Hypo-osmolality and hyponatremia; Z20.822 Contact with and (suspected) exposure to COVID-19
CPT/HCPCS: 36415; 71045; 80053; 81000; 83605; 84145; 85025; 85610; 85730; 87040; 87088; 87636